=== PATIENT | male | born 1945 | race Caucasian/White ===

== ENCOUNTER → 2024-02-08 15:15 | Outpatient (REF) | payer MEDICARE, OTHER, SELFPAY | LOC: HWRAD 15:15 | PROVIDERS: ATTENDING PHYSICIAN Physician Assistant; FAMILY PHYSICIAN Family Medicine | DX: J84.9 Interstitial pulmonary disease, unspecified (principal); R06.02 Shortness of breath | CPT/HCPCS: 71250 ==